=== PATIENT | female | born 1930 | race Caucasian/White ===

== ENCOUNTER 2016-09-05 15:48 | Outpatient (CLI) | payer MEDICARE, OTHER | END 2016-09-05 15:49 | disposition home or self-care (01) | DX: M16.0 Bilateral primary osteoarthritis of hip (principal); M47.898 Other spondylosis, sacral and sacrococcygeal region ==

== ENCOUNTER 2016-12-28 15:40 | Outpatient (CLI) | payer MEDICARE, OTHER | END 2016-12-28 15:41 | disposition critical access hospital (66) | LOC: EMS 15:40 | PROVIDERS: ATTEND Surgery | DX: M25.531 Pain in right wrist (principal); W01.198A Fall on same level from slipping, tripping and stumbling with subsequent striking against other object, initial encounter; Y93.E9 Activity, other interior property and clothing maintenance; Y92.012 Bathroom of single-family (private) house as the place of occurrence of the external cause | CPT/HCPCS: A0425; A0427 ==

== ENCOUNTER 2016-12-28 16:20 | Emergency (ER) | payer MEDICARE, OTHER ==
--- NOTE | 2016-12-28 16:31 | ED Physician Documentation ---
PD HPI UPPER EXT INJURY - Stated complaint Stated Complaint: R WRIST PX - History obtained from History obtained from: Patient, EMS - History of Present Illness Location: Other (She had a single episode of painless diarrhea last night, she was cleaning it up today and slipped in the diarrhea and fell injuring her right wrist. No head or neck injury, no other injury. No diarrhea today.) Review of Systems Constitutional: denies: Fever, Chills Throat: denies: Dental pain / toothache, Sore throat Cardiac: denies: Chest pain / pressure, Palpitations Respiratory: denies: Dyspnea, Cough PD PAST MEDICAL HISTORY - Present Medications Home Medications: Ambulatory Orders Medication Instructions Recorded Confirmed Citalopram [CeleXA] 40 mg PO DAILY 12/28/16 12/28/16 Losartan Potassium 100 mg PO DAILY 12/28/16 12/28/16 amLODIPine [Norvasc] 5 mg DAILY 12/28/16 12/28/16 metFORMIN [Glucophage] 500 mg PO BIDWM 12/28/16 12/28/16 traMADol [Ultram] 50 mg DAILY 12/28/16 12/28/16 traMADol [Ultram] 50 mg PO Q4-6H PRN #15 tablet 12/28/16 - Allergies Allergies/Adverse Reactions: Allergies Allergy/AdvReac Type Severity Reaction Status Date / Time No Known Drug Allergies Allergy Verified 12/28/16 16:33 PD ED PE NORMAL - Vitals Vital signs reviewed: Yes - General General: Alert and oriented X 3, No acute distress - HEENT HEENT: Other (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) - Neck Neck: Supple, no meningeal sign, No bony TTP - Extremities Extremities: Other (Tender to the distal dorsal wrist without obvious deformity but there is some swelling and limited range of motion, and in the hand.) - Neuro Neuro: Alert and oriented X 3, Normal speech - Psych Psych: Normal mood, Normal affect Results - Vitals Vitals: Vital Signs - 24 hr 12/28/16 16:20 Temperature 36.4 C L Heart Rate 56 L Respiratory 18 Rate Blood Pressure 136/68 H O2 Saturation 92 Oxygen O2 Source Room air - Rads (name of study) R wrist Radiology: EMP read contemporaneously (Intra-articular distal radius fracture) Procedures - Splint (location) R wrist Splint applied by: Tech Type of splint: Fiberglass, Short arm, Volar cock up Other: Patient tolerated well, No complications, Neurovascular intact PD MEDICAL DECISION MAKING - ED course ED course: 86-year-old woman, right-handed, lives alone. Slip and fall and injured her right wrist with a fracture there. She was splinted. Initially she did not want any help at home but I talked her into at least talking to the social media assistant about in-home care. Departure - Departure Disposition: Home, Self Care Clinical Impression: Distal radius fracture, right Qualifiers: Encounter type: initial encounter Fracture type: closed Fracture morphology: other intra-articular Qualified Code(s): S52.571A - Other intraarticular fracture of lower end of right radius, initial encounter for closed fracture Condition: Good Record reviewed to determine appropriate education?: Yes Instructions: ED Fx Forearm Radius Ulna No Redu Requ Follow-Up: [facility] [Provider Group] - Within 1 week Prescriptions: traMADol [Ultram] 50 mg PO Q4-6H PRN #15 tablet PRN Reason: Pain Comments: Keep the splint on and dry, call the orthopedic office on Friday for an appointment within the week. Return if worse. Your blood pressure was elevated today on check into the emergency department. This does not mean that you have hypertension, it is a common phenomenon to come to the emergency department and have elevated blood pressure. I recommend that she see her primary care physician within the week to have it rechecked when you are feeling better. Do not drink or drive while taking narcotic pain medication. Note that many narcotic pain relievers also contain Tylenol/acetaminophen. Please ensure that your total dose of acetaminophen from all sources does not exceed 3 g (3000 mg) per day. You may get constipated while on this medication. Take a stool softener such as Colace twice a day while you are on it. Also add an zikh-ycd-cuzlnrw laxative such as senna or MiraLAX on any day that you do not have a bowel movement. If you received a narcotic pain medication or sedative while in the emergency department, do not drive for the next 24 hours.
--- NOTE | 2016-12-28 17:10 | XRAY Preliminary Report ---
Exam: XR Wrist 4 View RT IMPRESSION: There is comminuted fracture through the distal right radius with intra-articular extent. There is no evidence of dislocation. [facility] SITE ID: [id number]
--- NOTE | 2016-12-28 17:13 | XRAY Report ---
EXAM: RIGHT WRIST RADIOGRAPHY EXAM DATE: 12/28/2016 04:46 PM. CLINICAL HISTORY: Wrist injury. COMPARISON: None. TECHNIQUE: 4 views. FINDINGS: Bones: There is comminuted fracture through the distal right radius. No evidence of significant displ acement or angulation. Joints: No evidence of dislocation. There are degenerative changes of the lateral wrist. Soft Tissues: No unexpected soft tissue findings. IMPRESSION: There is comminuted fracture through the distal right radius with intra-articular extent. There is no evidence of dislocation. [facility] Referring Provider Line: [phone] SITE ID: [id number]
[2016-12-28 19:21] VITALS: BP 138/77
== END 2016-12-28 19:20 | disposition home or self-care (01) ==
LOC: EDUNIT# → ED 16:20
DX: S52.571A Other intraarticular fracture of lower end of right radius, initial encounter for closed fracture (principal); W01.0XXA Fall on same level from slipping, tripping and stumbling without subsequent striking against object, initial encounter; Y92.012 Bathroom of single-family (private) house as the place of occurrence of the external cause
CPT/HCPCS: 29125; 99283

== ENCOUNTER 2017-01-06 15:30 | Outpatient (CLI) | payer MEDICARE, OTHER ==
--- NOTE | 2017-01-07 09:45 | XRAY Report ---
THREE-VIEW THORACIC SPINE: 01/06/2017 CLINICAL INDICATION: Thoracic pain. FINDINGS: AP, lateral views of the thoracic spine demonstrate moderate degenerative disk disease. T here is mild degenerative dextroscoliosis. There is no evidence of compression fracture. No paraspi nal hematoma is seen. IMPRESSION: MODERATE DEGENERATIVE CHANGES. JOB #: [id number] EXT JOB #:[id number]
--- NOTE | 2017-01-07 09:47 | XRAY Report ---
BILATERAL RIBS: 01/06/2017 CLINICAL INDICATION: Bilateral rib pain. FINDINGS: AP and bilateral oblique views of the ribs were obtained. There is no evidence of a displ aced rib fracture. No pneumothorax is seen. The cardiac silhouette is mildly enlarged. The lungs a re clear. IMPRESSION: NO EVIDENCE OF A DISPLACED RIB FRACTURE. JOB #: [id number] EXT JOB #:[id number]
== END 2017-01-06 15:31 | disposition home or self-care (01) ==
LOC: DI.S 15:30
PROVIDERS: ATTEND Nurse Practitioner Family
DX: R07.81 Pleurodynia (principal); M51.34 Other intervertebral disc degeneration, thoracic region
CPT/HCPCS: 71110; 72072

== ENCOUNTER 2017-02-11 13:02 | Outpatient (CLI) | payer MEDICARE, OTHER ==
[2017-02-11 18:02] LABS: HEMOGLOBIN A1C 0.73 g/dL
== END 2017-02-11 13:03 | disposition home or self-care (01) ==
LOC: LAB.F 13:02
PROVIDERS: ATTEND Nurse Practitioner Family
DX: E11.9 Type 2 diabetes mellitus without complications (principal)
CPT/HCPCS: 36415; 83036

== ENCOUNTER 2017-03-15 18:43 | Emergency (ER) | payer MEDICARE, OTHER ==
[2017-03-15] MEDS ORDERED: IPRATROPIUM/ALBUTEROL 3 ML NEB INH STA (20:26)
--- NOTE | 2017-03-15 20:31 | ED Physician Documentation ---
PD HPI URI - Stated complaint Stated Complaint: SOA/COUGH - Chief complaint Chief Complaint: Resp - History obtained from History obtained from: Patient, Family - History of Present Illness Timing - onset: How many days ago (3) Timing duration: Days (3) Timing details: Gradual onset Pain level max: 0 Pain level now: 0 Associated symptoms: Nasal congestion, Rhinorrhea, Dry cough, Dyspnea (wheezing) . No: Fever, Chills, Sweats, Ear pain, Sinus pain, Sore throat, Swollen nodes, Hemoptysis, Chest pain, NVD, Bilateral edema Contributing factors: Sick contact, Other (smokes 1/2ppd) Improves by: Nothing Worsened by: Activity, Breathing Similar symptoms before: Diagnosis (viral URI) Recently seen: Not recently seen Review of Systems Ten Systems: 10 systems reviewed and negative Constitutional: denies: Fever, Chills Ears: denies: Ear pain Nose: reports: Rhinorrhea / runny nose, Congestion Throat: denies: Sore throat Respiratory: reports: Cough GI: denies: Abdominal Pain, Nausea, Vomiting, Diarrhea Skin: denies: Rash Musculoskeletal: denies: Neck pain, Back pain Neurologic: denies: Headache PD PAST MEDICAL HISTORY - Past Medical History Past Medical History: Yes Cardiovascular: Hypertension, High cholesterol Respiratory: None Neuro: None Endocrine/Autoimmune: Type 2 diabetes GI: None DELIVERY DRIVER ASSISTANT: None : None HEENT: None Psych: None Musculoskeletal: None Derm: None - Past Surgical History Past Surgical History: Yes - Present Medications Home Medications: Ambulatory Orders Medication Instructions Recorded Confirmed Citalopram [CeleXA] 40 mg PO DAILY 12/28/16 12/28/16 Losartan Potassium 100 mg PO DAILY 12/28/16 12/28/16 amLODIPine [Norvasc] 5 mg DAILY 12/28/16 12/28/16 metFORMIN [Glucophage] 500 mg PO BIDWM 12/28/16 12/28/16 traMADol [Ultram] 50 mg DAILY 12/28/16 12/28/16 traMADol [Ultram] 50 mg PO Q4-6H PRN #15 tablet 12/28/16 Albuterol Sulf [Ventolin Hfa 2 puffs INH Q4HR PRN #1 inhaler 03/15/17 Inhaler] Benzonatate [Tessalon Perle] 100 - 200 mg PO TID PRN #30 capsule 03/15/17 - Allergies Allergies/Adverse Reactions: Allergies Allergy/AdvReac Type Severity Reaction Status Date / Time No Known Drug Allergies Allergy Verified 03/15/17 19:02 - Social History Does the pt smoke?: No Smoking Status: Never smoker Does the pt drink ETOH?: No Does the pt have substance abuse?: No - Immunizations Immunizations are current?: Yes PD ED PE NORMAL - Vitals Vital signs reviewed: Yes - General General: Alert and oriented X 3, No acute distress - HEENT HEENT: PERRL, Ears normal, Moist mucous membranes, Pharynx benign - Neck Neck: Supple, no meningeal sign - Cardiac Cardiac: RRR - Respiratory Respiratory: No respiratory distress, Other (decreased BS bilaterally. Wheezing B) - Abdomen Abdomen: Soft, Non tender, Non distended - Derm Derm: Warm and dry - Extremities Extremities: No edema, No calf tenderness / cord - Neuro Neuro: Alert and oriented X 3 - Psych Psych: Normal mood, Normal affect Results - Vitals Vitals: Vital Signs - 24 hr 03/15/17 03/15/17 03/15/17 18:54 20:40 22:17 Temperature 36.0 C L Heart Rate 64 63 58 L Respiratory 20 18 17 Rate Blood Pressure 211/109 H 152/53 H O2 Saturation 95 90 L 03/15/17 22:28 Temperature Heart Rate 84 Respiratory Rate Blood Pressure O2 Saturation 94 Oxygen O2 Source Room air - Labs Labs: Laboratory Tests 03/15/17 03/15/17 20:53 20:53 WBC 8.8 RBC 4.12 L Hgb 12.6 Hct 37.9 MCV 91.9 MCH 30.6 MCHC 33.3 RDW 14.4 Plt Count 300 MPV 6.2 L Neut # 5.4 Lymph # 2.5 [place] # 0.8 Eos # 0.1 Baso # 0.0 Absolute Nucleated RBC 0.00 Nucleated RBC % 0.0 Sodium 131 L Potassium 4.5 Chloride 93 L Carbon Dioxide 28 Anion Gap 10.0 BUN 12 Creatinine 0.5 Estimated GFR (MDRD) 117 Glucose 125 H Calcium 10.2 Total Bilirubin 0.6 AST 16 ALT 15 Alkaline Phosphatase 75 Total Protein 7.6 Albumin 4.1 Globulin 3.5 Albumin/Globulin Ratio 1.2 Lipase 51 - Rads (name of study) cxr Radiology: Prelim report reviewed, EMP read contemporaneously, See rad report ( Stable mild cardiomegaly without CHF or acute pulmonary abnormality) PD MEDICAL DECISION MAKING - ED course Complexity details: reviewed results, re-evaluated patient, considered differential, d/w patient, d/w family ED course: Patient is an 87-year-old female who presents to the emergency department with what appears to be a viral upper respiratory infection. Wheezing improved with DuoNeb treatment. Will hold steroids at this time. She is not hypoxic. Will place on an inhaler and cough medication for home. No pneumonia on chest x- ray. Normal white count. States she does not want to be in the hospital and wants to go home, caregiver and family are comfortable taking her home. Patient and family counseled regarding signs and symptoms for which I believe and urgent re-evaluation would be necessary. Patient with good understanding of and agreement to plan and is comfortable going home at this time This document was made in part using voice recognition software. While efforts are made to proofread this document, sound alike and grammatical errors may occur. Departure - Departure Disposition: 01 Home, Self Care Clinical Impression: Viral URI, Hyponatremia Condition: Good Instructions: ED Viral Syndrome Follow-Up: Jacki Benton ARNP [Primary Care Provider] - Within 1 week Prescriptions: Albuterol Sulf [Ventolin Hfa Inhaler] 2 puffs INH Q4HR PRN #1 inhaler PRN Reason: Wheezing Benzonatate [Tessalon Perle] 100 - 200 mg PO TID PRN #30 capsule PRN Reason: Cough Comments: Drink plenty of fluids. Return if you worsen. Your sodium level should be rechecked with your doctor in 3-4 days. Your x-ray does not show any acute abnormalities today Discharge Date/Time: 03/15/17 22:28
[2017-03-15] MEDS ORDERED: IPRATROPIUM/ALBUTEROL 3 ML NEB INH ONE (20:49)
[2017-03-15 21:24] LABS: BASOPHILS % (AUTO) 0.3 %; EOSINOPHILS # (AUTO) 0.1 10^3/uL (0.0-0.7); EOSINOPHILS % (AUTO) 1.4 %; HCT - HEMATOCRIT 37.9 % (37.0-47.0); HGB - HEMOGLOBIN 12.6 g/dL (12.0-16.0); LYMPHOCYTES # (AUTO) 2.5 10^3/uL (1.5-3.5); LYMPHOCYTES % (AUTO) 28.3 %; MEAN CORPUSCULAR HEMOGLOBIN 30.6 pg (27.0-31.0); MEAN CORPUSCULAR HGB CONC 33.3 g/dL (32.0-36.0); MEAN CORPUSCULAR VOLUME 91.9 fL (81.0-99.0); MEAN PLATELET VOLUME 6.2 fL (7.9-10.8); MONOCYTES # (AUTO) 0.8 10^3/uL (0.0-1.0); MONOCYTES % (AUTO) 8.8 %; NEUTROPHILS # (AUTO) 5.4 10^3/uL (1.5-6.6); NEUTROPHILS % (AUTO) 61.2 %; RED BLOOD COUNT 4.12 10^6/uL (4.20-5.40); RED CELL DISTRIBUTION WIDTH 14.4 % (12.0-15.0); UNCORRECTED WHITE BLOOD COUNT 8.8 x10^3/uL; WHITE BLOOD COUNT 8.8 x10^3/uL (4.8-10.8)
[2017-03-15 21:41] LABS: ALBUMIN/GLOBULIN RATIO 1.2 (1.0-2.2); BILIRUBIN,TOTAL 0.6 mg/dL (0.2-1.0); CALCIUM 10.2 mg/dL (8.5-10.3); CREATININE 0.5 mg/dL (0.4-1.0); TOTAL PROTEIN 7.6 g/dL (6.7-8.2)
[2017-03-15] MEDS ORDERED: SODIUM CHLORIDE 0.9% 500 ML IV ONE (21:43)
[2017-03-15 21:55] LABS: POTASSIUM 4.5 mmol/L (3.5-5.0)
--- NOTE | 2017-03-15 22:14 | XRAY Preliminary Report ---
Exam: XR CHEST 2 VIEW PA/LAT IMPRESSION: Stable mild cardiomegaly without CHF or acute pulmonary abnormality. [facility] SITE ID: [id number]
--- NOTE | 2017-03-15 22:16 | XRAY Report ---
EXAM: CHEST RADIOGRAPHY EXAM DATE: 03/15/2017 08:39 PM. CLINICAL HISTORY: Cough. Shortness of breath for one week. COMPARISON: 01/06/2017. TECHNIQUE: 2 views. FINDINGS: Lungs/Pleura: No focal opacities evident. No pleural effusion. No pneumothorax. Normal volumes. Mediastinum: Stable mild cardiomegaly. Other: No bony abnormality noted. IMPRESSION: Stable mild cardiomegaly without CHF or acute pulmonary abnormality. [facility] Referring Provider Line: [phone] SITE ID: [id number]
[2017-03-15 22:18] VITALS: BP 152/53
[2017-03-15] MEDS ORDERED: BENZONATATE 100 MG CAPSULE PO STA (22:24)
[2017-03-15] MEDS ORDERED: BENZONATATE 100 MG CAPSULE PO ONE (22:29)
== END 2017-03-15 22:28 | disposition home or self-care (01) ==
LOC: ED 18:43
DX: J06.9 Acute upper respiratory infection, unspecified (principal); B97.89 Other viral agents as the cause of diseases classified elsewhere; E87.1 Hypo-osmolality and hyponatremia; I10 Essential (primary) hypertension; E11.9 Type 2 diabetes mellitus without complications; Z79.84 Long term (current) use of oral hypoglycemic drugs
CPT/HCPCS: 36415; 71020; 80053; 83690; 85025; 94640; 96360; 99283; A9270; J7620

== ENCOUNTER 2017-09-10 06:57 | Outpatient (CLI) | payer MEDICARE, OTHER | END 2017-09-10 06:58 | disposition EMS.NT | LOC: EMS 06:57 | PROVIDERS: ATTEND Surgery | DX: Z03.89 Encounter for observation for other suspected diseases and conditions ruled out (principal); W07.XXXA Fall from chair, initial encounter; Y92.009 Unspecified place in unspecified non-institutional (private) residence as the place of occurrence of the external cause ==

== ENCOUNTER 2017-10-09 14:51 | Outpatient (CLI) | payer MEDICARE, OTHER ==
--- NOTE | 2017-10-10 11:16 | XRAY Report ---
TWO VIEW CHEST: 10/09/2017 COMPARISON: Two view chest 04/07/2017. INDICATION: Exertional shortness of breath. TECHNIQUE: Two views. FINDINGS: Clear lungs. No pneumothorax or pleural effusion. Stable cardiomegaly. Mediastinum otherwise unremarkable. IMPRESSION: STABLE CARDIOMEGALY. NO EVIDENCE OF ACUTE THORACIC PROCESS. TD: 10/10/2017 11:15 [facility]
== END 2017-10-09 14:52 | disposition home or self-care (01) ==
LOC: DI.S 14:51
PROVIDERS: ATTEND Nurse Practitioner Family
DX: R06.09 Other forms of dyspnea (principal)
CPT/HCPCS: 71046

== ENCOUNTER 2017-10-24 13:24 | Outpatient (CLI) | payer MEDICARE, OTHER ==
[2017-10-24] MEDS ORDERED: ALBUTEROL NEB 2.5 MG/3 ML INH ONE (15:00)
== END 2017-10-24 13:25 | disposition home or self-care (01) ==
LOC: RT 13:24
PROVIDERS: ATTEND Nurse Practitioner Family
DX: R06.09 Other forms of dyspnea (principal)
CPT/HCPCS: 94060

== ENCOUNTER 2018-03-28 08:03 | Outpatient (CLI) | payer MEDICARE, OTHER | END 2018-03-28 08:04 | disposition E | LOC: EMS 08:03 | PROVIDERS: ATTEND Surgery ==